=== PATIENT | female | born 1960 | race African-American/Black ===

== ENCOUNTER → 2018-01-09 | Outpatient (CLI) | payer OTHER ==
[~2018-01-09] VITALS: Ht 149.9 cm; Wt 63.5 kg
[~2018-01-09] MED LIST: ALBUTEROL2.5 MG/31 INH; AMITRIPTYLINE H10 M3 PO; ASPIRIN325 PO; COLACE100 MG PO; ENDOCET 10-3251 EACH PO; FLEXERIL PO; GABAPENTIN 100100 MG PO; HYDROCODON-ACE1 EAC8 PO; LEXAPRO 10 MG T10 M1 PO; MEDROLDOSEPACK PO; MOBIC15 MG PO; OXYCONTIN10 M1 PO; PROAIR HFA8.5 GM INH; REGLAN 10 MG TA10 MG PO; REMERON15 MG PO; SKELAXIN 800 M800 M1 PO; TYLENOL EXTRA500 MG PO; VITAMIN D5000 UNIT PO; VITAMINC500 PO; VOLTAREN GEL 1100 G1 TOP; XANAX 0.25 MG0.25 MG PO; ZANAFLEX2 MG PO
--- NOTE | ~2018-01-09 | HPC ---
[facility] [address] [address] PAIN MANAGEMENT CONSULTATION Name: SHILO RAMON Room #: REG ARLETH Pereira.#: [id number] Admission: 01/09/18 Attend Phys: Andrzej Tsang MD Discharge: Date of : 62 Report #: [id number] THIS REPORT FOR: //name// CC: Della Conley MD [facility] physician/PCP Andrzej Tsang DATE OF SERVICE: 01/09/2018 PRIMARY CARE PHYSICIAN: Della Conley M.D. at [facility]. CHIEF COMPLAINT: Pain on the top of the right shoulder as well as pain down into the hand. FOLLOWUP HISTORY: The patient is a 57-year-old female who has been referred to the Pain Clinic for evaluation. The patient states that she has had some problems and pain involving her right shoulder. She has some limited ability to raise, move and use her shoulder. Denies any trauma. Notes that her pain is constant. She is not aware of any significant medications, which she has taken that have been helpful. She describes it is continuous, burning, aching and tender. Overall, she rates it as a 10/10. It has a significant impact on her ability to engage in activities of daily living. She was told that she probably has some torn area in the rotator cuff. She states that she is unable to take nonsteroidal anti-inflammatory medications for any length of time secondary to gastroesophageal type irritation. She has had some problems with arthritis. She is very apprehensive about what to do for her shoulder. She is not interested in an injection at this juncture. She is not interested in surgery at this time. She states that she is quite nervous. She has had some previous surgeries in the past. ALLERGIES: PENICILLIN. CURRENT MEDICATIONS: OxyContin 10 mg 1 p.o. b.i.d., gabapentin 100 mg t.i.d., Colace 100 mg at bedtime, Skelaxin 800 mg t.i.d., Remeron 15 mg at bedtime, Lexapro 10 mg a total of 20 daily, Zanaflex 2 mg q. 8 hours p.r.n., Xanax 0.25 mg b.i.d., Flexeril 10 mg t.i.d., vitamin D3, ascorbic acid 500 mg, Tylenol Extra Strength 500 mg q. 6 hours p.r.n., aspirin 325 mg daily, metoclopramide 10 mg before meals, albuterol ProAir 1 puff b.i.d., AccuNeb 2.5/3 mL shortness of breath and wheezing, hydrocodone 7.5 mg q. 6 hours p.r.n. pain. PAST MEDICAL HISTORY: Hypertension, arthritis, osteoporosis, easy bruisability, COPD, emphysema, sleep apnea. PAST SURGICAL HISTORY: Bunionectomy, cholecystectomy, again, that was left foot surgery, cataract surgery, right, hysterectomy complete, bilateral hand surgery, right foot removal of hardware, first metatarsal, tenosynovectomy of extensor [address] [address] PAIN MANAGEMENT CONSULTATION Name: ALEXIS SHILO SANCHEZ Room #: REG ARLETH Clemons#: [id number] Admission: 01/09/18 Attend Phys: Andrzej Tsang MD Discharge: Date of : 62 Report #: [id number] hallucis longus tendon, fifth metatarsal osteotomy, fifth metatarsal joint capsulotomy, first metatarsal fusion, first metatarsal lengthening on 05/04/2017, right foot hardware removal, extensor tenosynovitis metatarsal head debridement on 11/22/2017. SOCIAL HISTORY: She is unemployed. She is , lives alone, has 4 children, has a high school education, is a former tobacco smoker. REVIEW OF SYSTEMS: Questionnaire in the chart. A 12-point review indicates fever, night sweats, fatigue, weakness, wears glasses, blurred vision, hearing loss/ringing in the ears, chronic sinus problems/rhinitis, sore throat, voice changes, chronic frequent cough, asthma/wheezing. Loss of appetite. Awakens to urinate. Frequent recurring headaches, numbness and tingling sensation, nervousness, depression, insomnia, anemia. PAIN CLINIC ASSESSMENT: 1. History of osteoarthritis with surgeries in the foot area. The patient states she is not being treated for rheumatoid arthritis. 2. Height 5 feet 11 inches, weight 140 pounds, BMI is 28. 3. VITAL SIGNS: Blood pressure 171/105, pulse 66, respiratory rate 14, room air saturations 100%. 4. Pain intensity 10/10. 5. Fall risk. The patient has not fallen in the last 3 months. 6. Blood thinner. The patient is not on a blood thinner. 7. History of hypertension. The patient is being treated for hypertension. 8. Opioid therapy greater than 6 weeks. The patient is receiving some opioid medications from her primary. 9. Risk assessment tool. 10. Functional assessment. 11. Recreational drug use. The patient denies use of recreational drugs. 12. Tobacco: The patient is a former smoker. 13. Alcohol. The patient drinks wine cooler may be monthly. PHYSICAL EXAMINATION: GENERAL: The patient is a well-developed black female. She appears her stated age. Orientation: The patient is alert and oriented x 3. Affect, the patient is somewhat nervous and apprehensive. HEENT: Normocephalic, atraumatic. Extraocular eye muscles intact. Mucous membranes are moist. Hearing is within normal limits. Sclerae is nonicteric. NECK: With good range of motion without bruits or adenopathy. CHEST: Clear to auscultation without wheezing or rales. HEART: Regular rate, normal S1, S2. ABDOMEN: Nontender. EXTREMITIES: Upper extremities: Muscle straight judged to be 5/5 for the [facility] [address] [place] [address] PAIN MANAGEMENT CONSULTATION Name: ALEXIS SANCHEZSHILO Room #: [facility]#: [id number] Admission: 01/09/18 Attend Phys: Andrzej Tsang MD Discharge: Date of : 62 Report #: [id number] muscle groups. Deep tendon reflexes biceps +1 bilaterally. Sensation within normal limits. Lower extremity muscle strength is judged to be 5/5 for the major muscle groups in the lower extremities. The patient has musculoskeletal development, which is without significant scoliosis, kyphosis or lordosis. Muscle strength is judged to be 5/5 for the major muscle groups of lower extremity. The patient does complain of some pain and discomfort in her feet. She has had a number of surgeries involving the metatarsal secondary to chronic foot pain. The patient has pain and discomfort involving the right arm. States that she is unable to lift her right arm. She is able to raise it to the level of being parallel to the floor. Unable to lift it above her head. Forward extension as well as posterior extension are limited. Notes soreness in the shoulder area. Has difficulty combing her hair. IMAGING DATA: 1. MRI of the shoulder without contrast dated 12/14/2017 shows acromioclavicular joint; mild osteoarthritis with capsular hypertrophy and mild marginal spurring worse superiorly. No significant subacromial narrowing. Subacromial subdeltoid bursa; trace fluid in the subscapular deltoid subdeltoid bursa. Rotator cuff; supraspinatus; mild articular and bursal side fraying of the anterior and mid distal fibers at the foot plate with a background of mild tendinosis and trace intrasubstance tearing. Influenced infra supraspinatus; mild tendinosis and minimal intrasubstance tearing. 2. Subscapularis mild tendinosis of superior fibers, no tear. Tears major intact. glenohumeral joint. 3. There is a small glenohumeral effusion. No evidence of fracture or sequela of dislocation. Superior glenoid and humeral head. Hyalin cartilage is severely seen. Small inferior humeral head and neck junction osteophytes. There is degenerative signal and fraying of the superior labrum. No convincing displaced labral tear. Biceps tendon; the biceps labral anchor is intact. Mild tendinosis of the intraarticular long head biceps tendon. The inter-tubercle portion of the long biceps tendon is intact. However, there is a tenosynovial fluid and T1 hyperintense thickness of the soft tissue material in the tendon sheath maximally measuring 7 x 5 mm in TRV. Muscle signal and bulk is normal. No fatty atrophy. Bone marrow, no suspicious bone marrow lesions. The suprascapular notch, glenoid notch and quadrilateral space are unremarkable. There is no lymphadenopathy in the included portion of axilla. IMPRESSION: Notable tenosynovitis of the intertubercular long head biceps tendon. Second soft tissue within the tendon sheath likely reflects synovitis. Giant cell tumor of the tendon sheath could also be considered, but the MRI appearance is not quite typical. IMPRESSION: 1. Right shoulder pain. 2. Hypertension. [address] [address] PAIN MANAGEMENT CONSULTATION Name: SHILO RAMON Room #: REG ARLETH Clemons#: [id number] Admission: 01/09/18 Attend Phys: Andrzej Tsang MD Discharge: Date of : 62 Report #: [id number] 3. Arthritis. 4. Osteoporosis. 5. Chronic obstructive pulmonary disease. 6. Emphysema. 7. Sleep apnea. RECOMMENDATIONS: We discussed the treatment options with the patient. Possibility exists for injection of the affected area with local anesthetic and steroid. The patient at this juncture declines additional invasive treatment. We have discussed the possibility of trying a Medrol Dosepak and noting its efficacy. The patient is having some difficulty sleeping. Also, has pain. We will try amitriptyline 10 mg at bedtime. Hopefully, this will be helpful with the pain as well as help her get a better and more relaxed night sleep. We will also consider use of Voltaren gel to the affected surface of her shoulder. A script for these medications have been written. The patient will follow up in the future as needed. Possibility of an injection in the affected area has been provided for the patient to consider. We would like to thank you for letting us participate in her care. We hope she continues to improve. <ELECTRONICALLY SIGNED> By: Andrzej Tsang MD 01/18/18 [id number] Andrzej Tsang MD /TRACY
[2018-01-09 09:17] VITALS: BP 171/105
== END ==
LOC: PAIN 12-28 11:34
DX: M25.511 Pain in right shoulder (principal); I10 Essential (primary) hypertension; M19.011 Primary osteoarthritis, right shoulder; M81.8 Other osteoporosis without current pathological fracture; J44.9 Chronic obstructive pulmonary disease, unspecified; G47.30 Sleep apnea, unspecified